=== PATIENT | male | born 1990 | race Caucasian/White ===

== ENCOUNTER 2018-03-05 20:16 | Emergency (ER) | payer MEDICAID ==
[2018-03-05] MEDS: HYDROCODONE/APAP (10/325) TAB PO (21:47)
== END 2018-03-05 23:41 | disposition home or self-care (01) ==
LOC: FTE 23:41
DX: M25.572 Pain in left ankle and joints of left foot (principal)
CPT/HCPCS: 29515; 73590; 73610; 99283-25

== ENCOUNTER 2018-07-10 17:37 | Emergency (ER) | payer MEDICAID ==
[2018-07-10 22:06] LABS: URINE BLOOD (Dip) POC Negative (NEGATIVE); URINE GLUCOSE (Dip) POC Negative (NEGATIVE); URINE KETONES (Dip) POC Negative (NEGATIVE); URINE LEUKOCYTE EST (Dip) POC Negative (NEGATIVE); URINE NITRITE (Dip) POC Negative (NEGATIVE); URINE TOTAL PROTEIN POC Negative (NEGATIVE)
[2018-07-10 22:50] LABS: PROSTATE SPECIFIC ANTIGEN 0.7 ng/ml (0.0-4.0)
[2018-07-14 22:12] LABS: PSA, FREE 0.1 ng/mL
== END 2018-07-10 23:51 | disposition home or self-care (01) ==
LOC: FTE 17:37
DX: R30.0 Dysuria (principal)
CPT/HCPCS: 81003; 84153; 84154; 99282

== ENCOUNTER 2019-05-25 01:44 | Emergency (ER) | payer MEDICAID ==
[2019-05-25] MEDS: KETOROLAC 15 MG INJ IM (03:19)
== END 2019-05-25 03:27 | disposition home or self-care (01) ==
LOC: E/R 01:44
DX: R00.2 Palpitations (principal); R07.9 Chest pain, unspecified
CPT/HCPCS: 93005; 99283-25